=== PATIENT | male | born 1950 | race African-American/Black ===

== ENCOUNTER 2019-11-05 16:01 | Emergency (ER) | payer SELFPAY ==
--- NOTE | 2019-11-05 16:29 | PSYCHOLOGICAL NOTE ---
Psych Note - Psych Note Date seen by psych provider: 11/05/19 Time seen by psych provider: 16:00 - Collateral from [facility] and [facility]LY Psych Note: Patient prefers to be called by FROG Presenting Problem: Patient presented to the ED via [facility]LY and [facility]. STEVE petitioned for IVC due to psychosis (delusions of cutting demon out, hallucinations of a young girl, talks to his not there getting jumped by someone, has conversations with others not present when in middle of reality based conversation). He was at [facility], had a cart full of groceries, had a wood box maker, cut the luggage rack on vehicle that he believed there was a security camera on, said he is the president of multiple universes and travels through space, said he is God and is protecting from the next world war). KARLY described patient as calm and cooperative, that he was not aggressive. Patient unknown to ED and not found in [employer]. No information found in the [place] controlled substance database. Diagnosis: Psychosis Medication recommendations made by the psychiatric medication provider, Dr. Vaughn cross MD., includes: Risperdal 0.25 MG PO twice a day for psychosis Depakote ER 250MG PO twice a day for mood stabilization Buspar 5 MG PO twice a day for calming effect/anxiety/depression/sleep Impression/Plan: Only obtained collateral and medication recommendations. Patient to be fully assessed by behavioral health clinician tomorrow (11/06/2019) morning. Patent is on IVC via [employer], Petitioned by [facility]AB[facility] WILSON. Consulted with Dr. Jacobsen regarding the management and care of patient. ED Physician in agreement with recommendations.
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
[2019-11-05 17:23] LABS: URINE AMPHETAMINES SCREEN NEGATIVE; URINE BARBITURATES SCREEN NEGATIVE; URINE BENZODIAZEPINES SCREEN NEGATIVE; URINE COCAINE SCREEN NEGATIVE; URINE MARIJUANA (THC) SCREEN NEGATIVE; URINE METHADONE SCREEN NEGATIVE; URINE PHENCYCLIDINE SCREEN NEGATIVE
[2019-11-05 17:27] LABS: APPEARANCE,URINE CLEAR; BILIRUBIN,URINE NEGATIVE (NEGATIVE); COLOR,URINE YELLOW; GLUCOSE, URINE NEGATIVE (NEGATIVE); KETONES,URINE 20 mg/dL (NEGATIVE); LEUKOCYTE ESTERASE,URINE NEGATIVE (NEGATIVE); NITRITE,URINE NEGATIVE (NEGATIVE); PROTEIN,URINE 100 mg/dL (NEGATIVE); URINE SPECIFIC GRAVITY 1.031
[2019-11-05 17:39] LABS: ABSOLUTE MONOCYTES (AUTO) 0.5 10^3/uL (0.1-1.4); ABSOLUTE NEUT (AUTO) 4.2 10^3/uL (1.7-8.2); BASOPHILS % (AUTO) 0.3 % (0-2); EOSINOPHILS % (AUTO) 0.3 % (0-6); HEMATOCRIT 42.3 % (37.9-51.0); HEMOGLOBIN 14.4 g/dL (13.5-17.0); MEAN CORPUSCULAR HEMOGLOBIN 27.9 pg (27.0-33.4); MEAN CORPUSCULAR VOLUME 82 fl (80-97); MONOCYTES % (AUTO) 8.4 % (3-13); PLATELET COUNT 238 10^3/uL (150-450); RED BLOOD COUNT 5.15 10^6/uL (4.35-5.55); RED CELL DISTRIBUTION WIDTH 16.6 % (11.5-14.0); TOTAL CELLS COUNTED % (AUTO) 100 %; WHITE BLOOD COUNT 5.7 10^3/uL (4.0-10.5)
[2019-11-05 17:54] LABS: ALBUMIN 4.4 g/dL (3.5-5.0); ALKALINE PHOSPHATASE 92 U/L (38-126); ANION GAP 12 (5-19); ASPARTATE AMINO TRANSFERASE 104 U/L (17-59); BILIRUBIN,DIRECT 0.3 mg/dL (0.0-0.4); BILIRUBIN,TOTAL 0.4 mg/dL (0.2-1.3); BLOOD UREA NITROGEN 14 mg/dL (7-20); CALCIUM 9.9 mg/dL (8.4-10.2); CARBON DIOXIDE 26 mmol/L (22-30); CHLORIDE 104 mmol/L (98-107); GLUCOSE 181 mg/dL (75-110); POTASSIUM 4.3 mmol/L (3.6-5.0); SALICYLATE 8.5 mg/dL (2.0-20.0); TOTAL PROTEIN 7.9 g/dL (6.3-8.2)
[2019-11-05 17:58] LABS: ACETAMINOPHEN < 10 ug/mL (10-30); ALCOHOL < 10 mg/dL (NONE DETECTED)
[2019-11-05] MEDS ORDERED: DIVALPROEX SODIUM 250 MG TABLET.DR PO ONE (19:19)
[2019-11-05] MEDS ORDERED: LIDOCAINE 1% INJ-PF (10 MG/ML) 30 ML SDV INJ ONE (19:28)
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
[2019-11-05] MEDS: RISPERIDONE 0.25 MG TABLET PO SCH (20:37)
[2019-11-05] MEDS: CEPHALEXIN 500 MG CAPSULE PO SCH (20:37)
[2019-11-05] MEDS: BUSPIRONE HCL 10 MG TABLET PO SCH (20:37)
[2019-11-06] MEDS: CEPHALEXIN 500 MG CAPSULE PO SCH ×3 (05:41→14:44)
[2019-11-06] MEDS: BUSPIRONE HCL 10 MG TABLET PO SCH ×2 (09:14→18:22)
[2019-11-06] MEDS: DIVALPROEX SODIUM 250 MG TABLET.DR PO SCH ×2 (09:15→18:25)
[2019-11-06] MEDS: RISPERIDONE 0.25 MG TABLET PO SCH ×2 (09:15→18:25)
[2019-11-06] MEDS ORDERED: HYDRALAZINE HCL 25 MG TABLET PO ONE (16:03)
--- NOTE | 2019-11-06 17:22 | ER Document Report ---
Doctor's Note Notes: 11/06/19 17:22 PHYSICAL EXAMINATION: GENERAL: Appears well, healthy, well-nourished, no acute distress. LUNGS: Equal breath sounds bilaterally and clear to auscultation. No wheezes rales or rhonchi. CARDIOVASCULAR: S1-S2, regular rate, regular rhythm. Radial pulses 2+, normal. ABDOMEN: Normoactive bowel sounds. Soft, nontender, no guarding, no rebound tenderness, and no masses palpated. PSYCH: Normal mood, normal affect. Patient denies any suicidal or homicidal ideation. Patient is waiting for placement. Does not have any complaints at this time. Denies any pain. Laceration is healing well. Patient was started on hydrochlorothiazide for his blood pressure. Will reevaluate in the morning.
[2019-11-06 20:33] VITALS: BP 158/88
--- NOTE | 2019-11-06 23:37 | EKG REPORT ---
SEVERITY:- ABNORMAL ECG - ECTOPIC ATRIAL RHYTHM PROBABLE INFERIOR INFARCT, OLD : Confirmed by: Melissa Avelar 06-Nov-2019 23:36:27
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
== END 2019-11-06 20:05 ==
LOC: ER 16:01
DX: S61.412A Laceration without foreign body of left hand, initial encounter (principal); W26.8XXA Contact with other sharp object(s), not elsewhere classified, initial encounter; Y93.89 Activity, other specified; Y92.481 Parking lot as the place of occurrence of the external cause; R45.6 Violent behavior; R74.0 Nonspecific elevation of levels of transaminase and lactic acid dehydrogenase [LDH]; R31.9 Hematuria, unspecified
CPT/HCPCS: 93005; 99285; 36415; 87086; 80307 ×4; 85025; 87088; 80053; 81001; 87186; 93010; 12002; J3490 ×3